=== PATIENT | female | born 1965 | race Caucasian/White ===

== ENCOUNTER → 2017-02-28 | Outpatient (CLI) | payer BC ==
--- NOTE | 2017-02-28 17:07 | PCVCIMAG ---
APPROVED REPORT Ht: 5 ft 2 in Stress Test Details Stress Test: Exercise stress testing was performed using a Joel protocol. HR Resting HR: 81 bpmMax Heart Rate (APMHR): 169 bpm Max HR Achieved: 176 bpmTarget HR (85% APMHR): 143 bpm % of APMHR: 104 HR response to stress: Normal HR response to stress BP Resting BP: 120/60 mmHg Max BP: 140/68 mmHg ECG Resting ECG: Sinus Rhythm Stress ECG: Sinus Rhythm Clinical Reason for Termination: Maximal effort Exercise duration: 12 min 31 sec Highest Stage Achieved: Stage 5: 5.0 mph at 18% grade. Exercise capacity: 15.30 METs Overall Exercise Capacity for Age: Good Pre-Stress Echo The resting Echocardiogram showed normal left ventricular contractility with an estimated Ejection Fraction of about >55%. Normal wall motion in all segments on baseline images. Post-Stress Echo The stress Echocardiogram showed normal left ventricular contractility with an estimated Ejection Fraction of about 55-60%. Normal augmentation of wall motion in all segments on post stress images. Clinical No clinical or ECG evidence for ischemia. Conclusion Clinical Response: Non-ischemic Exercise Capacity: Superior Stress ECG Response: Non-ischemic Stress Echo Images: Non-ischemic The left ventricle is normal in size and wall thickness in both the rest and stress images. Other Information Study Quality: Good <Conclusion> The left ventricle is normal in size and wall thickness in both the rest and stress images.
== END | disposition home or self-care (01) ==
LOC: PCVCIMAG 15:44
PROVIDERS: ATTEND Internal Medicine Cardiovascular Disease
DX: R01.1 Cardiac murmur, unspecified (principal); R06.09 Other forms of dyspnea
CPT/HCPCS: 93325; 93351